=== PATIENT | male | born 1995 | race Two or more races ===

== ENCOUNTER 2022-01-10 11:00 | Emergency (ER) | payer OTHER ==
[~2022-01-10] VITALS: Ht 180.3 cm; Wt 70.3 kg
== END 2022-01-10 12:56 | disposition home or self-care (01) ==
LOC: ER 11:00
DX: M54.50 Low back pain, unspecified (principal); M54.2 Cervicalgia; V49.9XXA Car occupant (driver) (passenger) injured in unspecified traffic accident, initial encounter; Y93.9 Activity, unspecified; Y92.413 State road as the place of occurrence of the external cause; Y99.9 Unspecified external cause status

== ENCOUNTER → 2024-09-28 | Emergency (ER) | payer OTHER ==
[~2024-09-28] VITALS: Ht 180.3 cm; Wt 74.8 kg
[~2024-09-28] MED LIST: KETOROLAC TROMETHAMINE 60 MG VIAL IM ONE; KETOROLAC TROMETHAMINE 60 MG VIAL IM STA; ORPHENADRINE CITRATE 30 MG/ML AMPUL IM STA; ORPHENADRINE CITRATE 30 MG/ML AMPUL ONE
== END | disposition home or self-care (01) ==
LOC: ER 10:14
DX: M54.50 Low back pain, unspecified (principal)
CPT/HCPCS: 96372; 99282; J1885; J2360